=== PATIENT | female | born 1980 | race Caucasian/White ===

== ENCOUNTER → 2017-09-08 | Outpatient (CLI) | payer BC ==
--- NOTE | 2017-09-08 15:59 | XR ---
EXAMINATION TYPE: XR lumbosacral spine min 5 views, XR Hip Complete RT 2 views DATE OF EXAM: 09/08/2017 COMPARISON: NONE HISTORY: 37-year-old female fall, low back pain, right hip pain FINDINGS: Lumbar spine: Slight rightward truncal shift. 5 lumbar type vertebral bodies. No pars interarticularis defect. Mild facet arthropathy lower lumbar spine. Vertebral body heights are preserved and alignment is maintain ed. Mild endplate spondylosis visualized lower thoracic spine. Right hip: No acute fracture, subluxation, or dislocation. A phlebolith is seen within the right hemipelvis. IMPRESSION: 1. Lumbar spine: Rightward truncal shift could be positional or secondary to muscle spasm. Mild facet arthropathy lower lumbar spine. No vertebral compression collapse or malalignment. 2. Right hip: No acute osseous abnormality seen.
== END | disposition home or self-care (01) ==
LOC: RADXRMAIN 15:30
PROVIDERS: ATTEND Internal Medicine
DX: M46.96 Unspecified inflammatory spondylopathy, lumbar region (principal)
CPT/HCPCS: 72110; 73502

== ENCOUNTER → 2019-06-25 | Outpatient (CLI) | payer BC ==
--- NOTE | 2019-06-25 12:50 | XR ---
EXAMINATION TYPE: XR lumbosacral spine min 4V DATE OF EXAM: 06/25/2019 CLINICAL HISTORY: pain COMPARISON: NONE TECHNIQUE: Frontal, lateral, and oblique images of the lumbar spine are obtained. FINDINGS: There is curvature convex to the left mild in degree. There are 5 lumbar type vertebral bod ies identified. The lumbar spine shows satisfactory alignment without evidence of acute fracture or dislocation. Vertebral body heights are within normal limits. Disc spaces are well preserved. The o verlying soft tissue appears unremarkable. IMPRESSION: No acute fracture or dislocation is seen in the lumbar spine.ICD 10 NO FRACTURE, INITIAL EVALUATION
== END ==
LOC: RADXRMAIN 12:21
PROVIDERS: ATTEND Internal Medicine
DX: M54.5 Low back pain (principal)
CPT/HCPCS: 72110